=== PATIENT | male | born 1990 ===

== ENCOUNTER 2017-10-06 17:16 | Emergency (ER) | payer OTHER ==
[2017-10-06 17:58] VITALS: BP 126/60; PULSE 75; RESP 16; TEMP 98; O2SAT 99
--- NOTE | 2017-10-06 20:39 | ED PDOC ---
HPI: Abdomen Time Seen by Provider: 10/06/17 20:14 Chief Complaint (Nursing): Abdominal Pain History Per: Patient Onset/Duration Of Symptoms: Days (2) Current Symptoms Are (Timing): Intermittent Episodes Severity: Moderate Pain Scale Rating Of: 3 Location Of Pain/Discomfort: LLQ Associated Symptoms: denies: Fever, Nausea, Vomiting, Diarrhea, Urinary Symptoms Additional Complaint(s): LLQ abd pain x 2 days. Denies fever, NVD, No dysuria or frequency. No hematuria. No blood in stools. Pain worse when standing. Past Medical History Vital Signs: Last Vital Signs Temp 98.0 F 10/06/17 17:56 Pulse 75 10/06/17 17:56 Resp 16 10/06/17 17:56 BP 126/60 10/06/17 17:56 Pulse Ox 99 10/06/17 20:40 - Medical History PMH: No Chronic Diseases - Family History Family History: States: Unknown Family Hx - Allergies Allergies/Adverse Reactions: Allergies Allergy/AdvReac Type Severity Reaction Status Date / Time Penicillins Allergy RASH Verified 10/06/17 17:56 Review of Systems ROS Statement: Except As Marked, All Systems Reviewed And Found Negative Constitutional: Negative for: Fever Gastrointestinal: Positive for: Abdominal Pain. Negative for: Nausea, Vomiting , Diarrhea, Melena, Hematochezia Genitourinary Male: Negative for: Dysuria, Frequency, Hematuria Physical Exam - Physical Exam Appears: Positive for: Non-toxic, No Acute Distress Skin: Positive for: Normal Color, Warm, DRY Gastrointestinal/Abdominal: Positive for: Bowel Sounds, Soft, Tenderness (LLQ) Back: Positive for: Normal Inspection. Negative for: L CVA Tenderness, R CVA Tenderness Extremity: Positive for: Normal ROM Neurologic/Psych: Positive for: Alert, Oriented - Laboratory Results Result Diagrams: 10/06/17 21:42 10/06/17 21:42 - ECG O2 Sat by Pulse Oximetry: 99 Disposition - Clinical Impression Clinical Impression: Abdominal pain - Patient ED Disposition Is Patient to be Admitted: Transfer of Care - Disposition Disposition: Transfer of Care Disposition Time: 23:59 Condition: FAIR Forms: [employer] (Tongan) Patient Signed Over To: Pita Friedman
[2017-10-06 21:45] LABS: BASO # 0.1 K/uL (0.0-0.2); BASO % 0.7 % (0.0-2.0); EOS # 0.3 K/uL (0.0-0.7); EOS % 3.2 % (0.0-4.0); HEMOGLOBIN 14.6 g/dL (12.0-18.0); LYMPH # 3.6 K/uL (1.0-4.3); LYMPH % 35.8 % (20.0-40.0); MEAN CELL VOLUME 85.1 fl (80.0-94.0); MEAN CORPUSCULAR HEMOGLOBIN 28.4 pg (27.0-31.0); MEAN CORPUSCULAR HGB CONC 33.4 g/dL (33.0-37.0); MEAN PLATELET VOLUME 8.5 fl (7.2-11.7); MONO # 0.5 K/uL (0.0-0.8); MONO % 5.3 % (0.0-10.0); NEUT # 5.6 K/uL (1.8-7.0); RBC 5.16 Mil/uL (4.40-5.90); RED CELL DISTRIBUTION WIDTH 12.7 % (11.5-14.5); WHITE BLOOD COUNT 10.1 K/uL (4.8-10.8)
[2017-10-06 21:55] LABS: ALB/GLOB RATIO 1.3 (1.0-2.1); ALBUMIN 4.4 g/dL (3.5-5.0); ALT/SGPT 55 U/L (21-72); AST/SGOT 33 U/L (17-59); BLOOD UREA NITROGEN 17 mg/dl (9-20); CALCIUM 9.5 mg/dL (8.4-10.2); GFR AFRICAN-AMERICAN > 60; GFR NON-AFRICAN AMERICAN > 60
[2017-10-06] MEDS ORDERED: Iohexol 300 100 ML IJ ONE (23:03)
[2017-10-06] MEDS ORDERED: Sodium Chloride 0.9% 50 ML IV ONE (23:04)
[2017-10-07] MEDS ORDERED: Sodium Chloride 0.9% 1,000 ML IV STA (00:34)
--- NOTE | 2017-10-07 00:37 | ED PDOC ---
- Laboratory Results Result Diagrams: 10/06/17 21:42 10/06/17 21:42 - ECG O2 Sat by Pulse Oximetry: 99 Medical Decision Making Medical Decision Making: Time: 00:00 Patient is signed over to me by Dr. Benedict pending Abdomen & Pelvis CT. Time: 01:07 CT Abd & P Pelvis FINDINGS: Limited secondary to motion artifact. Lower thorax: No acute findings. ABDOMEN: Liver: Unremarkable. No mass. Gallbladder and bile ducts: Unremarkable. No calcified stones. No ductal dilation. Pancreas: Unremarkable. No mass. No ductal dilation. Spleen: Unremarkable. No splenomegaly. Adrenals: Unremarkable. No mass. Kidneys and ureters: Unremarkable. No solid mass. No hydronephrosis. Stomach and bowel: Question mild stranding adjacent to the distal descending colon images 54-56 No obstruction. No mucosal thickening. Appendix: No findings to suggest acute appendicitis. PELVIS:Bladder: Unremarkable. No mass. Reproductive: Unremarkable as visualized. ABDOMEN and PELVIS: Intraperitoneal space: Trace pelvic fluid No free air. No significant fluid collection. Bones/joints: No acute fracture. No dislocation. Soft tissues: Unremarkable. Vasculature: Unremarkable. No abdominal aortic aneurysm. Lymph nodes: Unremarkable. No enlarged lymph nodes. IMPRESSION: Question mild stranding adjacent to the distal descending colon. No significant bowel wall thickening. Trace pelvic fluid. Findings may represent appendicitis epiploica. Faint diverticulitis cannot be completely excluded Continued followup as clinically indicated Time: 01:55 Upon provider reevaluation patient is feeling better, is medically stable, and requires no further treatment in the ED at this time. Patient will be discharged home. Counseling was provided and all questions were answered regarding diagnosis.There is agreement to discharge plan. Return if symptoms persist or worsen. Clinical Impression: Abdominal pain Scribe Attestation: Documented by Thor Jones acting as a scribe for Pita Friedman MD. Scribe Attestation: All medical record entries made by the Scribe were at my direction and personally dictated by me. I have reviewed the chart and agree that the record accurately reflects my personal performance of the history, physical exam, medical decision making, and the department course for this patient. I have also personally directed, reviewed, and agree with the discharge instructions and disposition. Disposition Doctor Will See Patient In The: Office Counseled Patient/Family Regarding: Studies Performed, Diagnosis, Need For Followup - Clinical Impression Clinical Impression: Abdominal pain, Diverticulitis, Appendicitis epiploica - POA Present On Arrival: None - Disposition Referrals: [facility] [Outside] Disposition: Routine/Home Disposition Time: 01:55 Condition: GOOD Additional Instructions: Take your medications as instructed. Follow up with your PCP in 2-3 days. Prescriptions: Ciprofloxacin HCl [Cipro] 500 mg PO BID #14 tablet Metronidazole [Flagyl] 500 mg PO BID #14 tablet Instructions: Diverticulitis (DC)
--- NOTE | 2017-10-07 09:22 | CT ---
PROCEDURE: CT Abdomen and Pelvis with contrast HISTORY: LLQ pain COMPARISON: None. TECHNIQUE: Contrast dose: 99 mL Omnipaque 350 Radiation dose: Total exam DLP = 366.5 mGy-cm. This CT exam was performed using one or more of the following dose reduction techniques: Automated exposure control, adjustment of the mA and/or kV according to patient size, and/or use of iterative reconstruction technique. FINDINGS: Markedly limited evaluation due to motion artifact. LOWER THORAX: Unremarkable. LIVER: Unremarkable. No gross lesion or ductal dilatation. GALLBLADDER AND BILE DUCTS: Limited evaluation due to motion artifact, but no gross abnormality. PANCREAS: Limited evaluation due to motion artifact, but no gross abnormality. SPLEEN: Limited evaluation due to motion artifact, but no gross abnormality. ADRENALS: Limited evaluation due to motion artifact, but no gross abnormality. KIDNEYS AND URETERS: Limited evaluation due to motion artifact, but no gross abnormality. VASCULATURE: Unremarkable. No aortic aneurysm. BOWEL: Questionable/ likely area of bowel wall thickening in the distal descending/ proximal sigmoid colon. APPENDIX: Difficult to identify due to motion artifact. PERITONEUM: Unremarkable. Trace pelvic free fluid. No free air. LYMPH NODES: Limited evaluation due to motion artifact. BLADDER: Unremarkable. REPRODUCTIVE: Unremarkable. BONES: Limited evaluation due to motion artifact. OTHER FINDINGS: None. IMPRESSION: Markedly limited examination due to motion artifact. Questionable/ likely area of bowel wall thickening of the distal descending/ proximal sigmoid colon which may represent cysts colitis, diverticulitis or adjacent process with reactive bowel wall thickening.
== END 2017-10-07 02:05 | disposition home or self-care (01) ==
LOC: H.ER 17:16
DX: K57.92 Diverticulitis of intestine, part unspecified, without perforation or abscess without bleeding (principal); Q43.8 Other specified congenital malformations of intestine; K57.90 Diverticulosis of intestine, part unspecified, without perforation or abscess without bleeding; Z88.0 Allergy status to penicillin
CPT/HCPCS: 74177; 80053; 85025; 99282; J7040; Q9967